=== PATIENT | female | born 1975 | race Caucasian/White ===

== ENCOUNTER 2021-12-06 10:08 | Emergency (ER) | payer MEDICAID ==
[~2021-12-06] VITALS: Ht 162.6 cm; Wt 103.5 kg
[2021-12-06 11:31] VITALS: BP 139/83
== END 2021-12-06 13:04 | disposition home or self-care (01) ==
LOC: ER 10:08
DX: F15.23 Other stimulant dependence with withdrawal (principal); E11.9 Type 2 diabetes mellitus without complications; I10 Essential (primary) hypertension; Z59.00 Homelessness unspecified; Z88.2 Allergy status to sulfonamides; Z88.5 Allergy status to narcotic agent; Z88.6 Allergy status to analgesic agent
CPT/HCPCS: 99281

== ENCOUNTER 2022-10-10 02:49 | Emergency (ER) | payer MEDICAID ==
[~2022-10-10] VITALS: Ht 162.6 cm; Wt 100.2 kg
[2022-10-10 02:59] VITALS: BP 135/90; PULSE 91; RESP 18; TEMP 98.2; O2SAT 99
--- NOTE | 2022-10-10 03:08 | NUR ---
TOMMY CONTACTED CASE # [id number]
--- NOTE | 2022-10-10 04:50 | NUR ---
ANITA HERE TO MAKE REPORT.
[2022-10-10] MEDS ORDERED: bacitracin 15gm ointment TP ONE (05:20)
[2022-10-10] MEDS ORDERED: BACI28OI9 TP (05:22)
== END 2022-10-10 05:57 | disposition home or self-care (01) ==
LOC: ER 02:50
DX: S01.312A Laceration without foreign body of left ear, initial encounter (principal); I10 Essential (primary) hypertension; E11.9 Type 2 diabetes mellitus without complications; F15.90 Other stimulant use, unspecified, uncomplicated; Z88.2 Allergy status to sulfonamides; Z88.5 Allergy status to narcotic agent; Z88.6 Allergy status to analgesic agent; Z79.2 Long term (current) use of antibiotics; Z98.890 Other specified postprocedural states; Y08.89XA Assault by other specified means, initial encounter; Y93.89 Activity, other specified; Y92.89 Other specified places as the place of occurrence of the external cause; Y99.8 Other external cause status
CPT/HCPCS: 99282

== ENCOUNTER 2023-06-05 23:49 | Emergency (ER) | payer MEDICAID ==
[~2023-06-05] VITALS: Ht 162.6 cm; Wt 90.9 kg
[~2023-06-05 23:49] MED LIST: BACI28OI9 TP
[2023-06-06 00:17] VITALS: BP 128/80; TEMP 98.8
[2023-06-06] MEDS ORDERED: fentaNYL/PF 50MCG/1 ML 2ML syringe IM ONE (01:30)
[2023-06-06 01:45] LABS: BILIRUBIN,URINE NEGATIVE (Neg); CLARITY,URINE SLIGHTLY CLOUDY (Clear); COLOR,URINE YELLOW (Yellow); GLUCOSE, URINE NEGATIVE (Neg); KETONES,URINE NEGATIVE (Neg); LEUKOCYTE ESTERASE ,URINE NEGATIVE (Neg); NITRITES, URINE NEGATIVE (Neg); OCCULT BLOOD,URINE NEGATIVE (Neg); PH,URINE 5.5 (4.8-8.0); PROTEIN,URINE NEGATIVE (Neg); UROBILINOGEN,URINE 0.2 E.U/dL (0.2-1.0)
[2023-06-06 01:48] LABS: UA COLLECTION TYPE CLN CATCH MIDSTREAM
[2023-06-06 01:54] LABS: SQUAMOUS EPITHELIAL CELL,UR MANY /LPF (FEW)
[2023-06-06 01:57] LABS: BACTERIA,URINE 1+ /HPF (Neg); MUCUS STRANDS FEW /LPF (Neg); TRANSITIONAL EPI CELLS,URINE FEW /HPF
[2023-06-06 01:59] LABS: RBC,URINE 0-2 /HPF (0-2)
[2023-06-06 02:08] LABS: URINE AMPHETAMINE SCREEN POSITIVE (Neg); URINE BARBITUATE SCREEN NEGATIVE (Neg); URINE BENZODIAZEPINES SCREEN NEGATIVE (Neg); URINE CANNABINOID SCREEN NEGATIVE (Neg); URINE COCAINE SCREEN NEGATIVE (Neg); URINE METHADONE SCREEN NEGATIVE (Neg); URINE OPIATE SCREEN NEGATIVE (Neg); URINE PHENCYCLIDINE SCREEN NEGATIVE (Neg)
[2023-06-06] MEDS: orphenadrine citrate 60mg/2ml inj. IM ONE (02:09)
[2023-06-06] MEDS: acetaminophen 325mg tablet PO ONE (02:14)
[2023-06-06] MEDS: fentaNYL/PF 50MCG/1 ML 2ML syringe IV ONE (02:14)
[2023-06-06 02:33] LABS: BASOPHILS # (AUTO) 0.1 X10'3 (0-0.2); EOSINOPHILS # (AUTO) 0.2 X10'3 (0-0.9); EOSINOPHILS % (AUTO) 2.1 % (0-6); HEMATOCRIT 38.9 % (35.0-45.0); HEMOGLOBIN 12.4 g/dl (12.0-16.0); LYMPHOCYTES # (AUTO) 2.9 X10'3 (1.1-4.8); LYMPHOCYTES % (AUTO) 25.7 % (21-51); MEAN CORPUSCULAR HEMOGLOBIN 27.3 PG (27.0-31.0); MEAN CORPUSCULAR HGB CONC 31.9 g/dL (33.0-36.5); MEAN CORPUSCULAR VOLUME 85.4 FL (78-98); MEAN PLATELET VOLUME 7.6 FL (7.4-10.4); MONOCYTES # (AUTO) 0.9 X10'3 (0-0.9); MONOCYTES % (AUTO) 7.5 % (2-12); NEUTROPHILS # (AUTO) 7.3 X10'3 (1.8-7.7); NEUTROPHILS % (AUTO) 63.7 % (42-75); PLATELET COUNT 488 X10'3 (140-440); RED BLOOD COUNT 4.55 X10'6 (4.20-5.60); RED CELL DISTRIBUTION WIDTH 18.5 % (11.5-14.5); WHITE BLOOD COUNT 11.4 X10'3 (4.5-11.0)
[2023-06-06 02:40] LABS: ALBUMIN 2.9 G/DL (3.4-5.0); ANION GAP 7 (8-16); BLOOD UREA NITROGEN 14 MG/DL (7-18); BUN/CREATININE RATIO 15.2 (10.0-20.0); CALCIUM 8.6 MG/DL (8.5-10.1); CHLORIDE 108 MMOL/L (99-107); CREATININE 0.92 MG/DL (0.40-0.90); GLUCOSE 96 MG/DL (70-104); POTASSIUM 3.8 MMOL/L (3.5-5.1); SODIUM 142 MMOL/L (135-145); TOTAL CARBON DIOXIDE 26.8 MMOL/L (24-32); eCRCL 67 ML/MIN; eGFR 66 ML/MIN
[2023-06-06] MEDS ORDERED: CYCL-1 PO (03:52)
[2023-06-06 04:26] VITALS: PULSE 82; RESP 16; O2SAT 98
== END 2023-06-06 04:27 | disposition home or self-care (01) ==
LOC: ER 23:49
DX: M54.9 Dorsalgia, unspecified (principal); F15.90 Other stimulant use, unspecified, uncomplicated; R51.9 Headache, unspecified; I10 Essential (primary) hypertension; E11.9 Type 2 diabetes mellitus without complications; G89.29 Other chronic pain; Z59.00 Homelessness unspecified; Z88.2 Allergy status to sulfonamides; Z88.5 Allergy status to narcotic agent; Z79.899 Other long term (current) drug therapy; Z72.89 Other problems related to lifestyle
CPT/HCPCS: 36415; 74176; 80048; 80305; 81001; 85025; 96372; 96374; 99285; J2360; J3010

== ENCOUNTER 2023-11-06 22:10 | Emergency (ER) | payer MEDICAID ==
[~2023-11-06] VITALS: Ht 162.6 cm; Wt 102.7 kg
[~2023-11-06 22:10] MED LIST changes: +CYCL-1 PO
[2023-11-06 22:36] VITALS: PULSE 110
[2023-11-06] MEDS ORDERED: ROPI2TAB29 PO (22:49)
[2023-11-06] MEDS ORDERED: QUET50TA PO (22:49)
[2023-11-06] MEDS ORDERED: NALT50TA5 PO (22:49)
[2023-11-06] MEDS ORDERED: HYDR-3686 PO (22:49)
[2023-11-06 22:56] VITALS: BP 100/87; RESP 15; TEMP 98; O2SAT 100
== END 2023-11-06 22:58 | disposition home or self-care (01) ==
LOC: ER 22:11
DX: F41.9 Anxiety disorder, unspecified (principal); I10 Essential (primary) hypertension; E11.9 Type 2 diabetes mellitus without complications; G89.29 Other chronic pain; Z98.891 History of uterine scar from previous surgery; Z98.51 Tubal ligation status; Z59.00 Homelessness unspecified; Z88.2 Allergy status to sulfonamides; Z88.5 Allergy status to narcotic agent; Z88.8 Allergy status to other drugs, medicaments and biological substances; Z79.899 Other long term (current) drug therapy
CPT/HCPCS: 99283

== ENCOUNTER 2024-04-20 13:09 | Emergency (ER) | payer MEDICAID ==
[~2024-04-20] VITALS: Ht 162.6 cm; Wt 96.4 kg
[~2024-04-20 13:09] MED LIST changes: +NALT50TA5 PO; +QUET50TA PO; +ROPI2TAB29 PO
[2024-04-20] MEDS ORDERED: NICO-731 TOP (14:10)
[2024-04-20 14:17] VITALS: BP 146/86; PULSE 96; RESP 16; TEMP 97.9; O2SAT 98
== END 2024-04-20 14:22 | disposition home or self-care (01) ==
LOC: ER 13:09
DX: Z00.00 Encounter for general adult medical examination without abnormal findings (principal); E11.9 Type 2 diabetes mellitus without complications; I10 Essential (primary) hypertension; F17.210 Nicotine dependence, cigarettes, uncomplicated; F15.90 Other stimulant use, unspecified, uncomplicated; Z88.2 Allergy status to sulfonamides; Z88.5 Allergy status to narcotic agent; Z98.51 Tubal ligation status
CPT/HCPCS: 99282

== ENCOUNTER 2025-01-07 09:01 | Emergency (ER) | payer MEDICAID ==
[~2025-01-07] VITALS: Ht 162.6 cm; Wt 96.9 kg
[~2025-01-07 09:01] MED LIST changes: +NICO-731 TOP
[2025-01-07 09:13] VITALS: BP 129/75; PULSE 78; RESP 16; TEMP 98.4; O2SAT 99
--- NOTE | 2025-01-07 09:23 | Physician Documentation ---
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 No acute concerns Tetanus within 5 years?: Yes Medication Reconciliation Allergies: Coded Allergies: Sulfa (Sulfonamide Antibiotics) (Verified Allergy, Severe, Hives, 01/07/25) morphine (Verified Allergy, Unknown, SWELLING, HIVES, 01/07/25) ketorolac (Verified Adverse Reaction, Intermediate, crawl out of my skin, 01/07/25) Scheduled Bacitracin/Pramoxine/Aloe Vera (Bacitracin Plus Ointment), 28 GM TP BID Cyclobenzaprine* (Cyclobenzaprine*), 1 TAB PO HS Naltrexone Hcl (Naltrexone Hcl), 0.5 TAB PO DAILY Nicotine (Nicotine Patch), 1 PATCH TOP DAILY Quetiapine Fumarate (Seroquel), 1 TAB PO HS Ropinirole Hcl (Ropinirole Hcl), 1 TAB PO DAILY Past Medical History Past Medical History: Hypertension, Diabetes, Chronic Pain Past Surgical History: , tubal ligation Alcohol Use: Rarely Drug Use: methamphetamine Lives with: Spouse, Family Lives In: Homeless Review of Systems All Other Systems at this time: Reviewed and Negative Constitutional: Reports: see HPI Physical Exam Vital Signs: RN Vital Signs have been reviewed: Yes, Temperature: 98.4, Source: Oral, Heart Rate: 78, Respiratory Rate: 16, BP: 129/75, Pulse Oximetry: 99, Weight: 96.900 Oxygen Flow Rate: 0 Physical Exam General: Alert, no apparent distress. HEENT: PERRL, EOMI, no injection, moist mucous membranes. Neck: Full range of motion. Respiratory: Lungs clear, no respiratory distress. Chest: No accessory muscle use. Cardiovascular: Regular rate and rhythm, no murmurs. Extremities: Normal range of motion, no deformity. Neurologic: Oriented x4. Psychiatric: Normal mood and affect. Skin: Normal color, warm and dry. No edema, no ecchymosis. Progress Results/Orders Results/Orders Vital Signs 01/07/25 09:13 Temp 98.4 Pulse 78 Resp 16 B/P (MAP) 129/75 Pulse Ox 99 O2 Flow Rate 0 Medical Decision Making Additional information obtaine: N/A Findings Medical clearance provided to maintain sobriety within an outpatient program Differential Dx:Considerations: Include: Medically stable Departure Time of Disposition: 09:22 Disposition: 01 HOME / SELF CARE / HOMELESS Impression: Primary Impression: General medical exam Condition: Stable Discharge Instructions: Medical Screening Exam Additional Instructions: Patient is medically cleared for rehab Referrals: NO PRIMARY CARE PROVIDER (PCP) Education Educated: Patient Educated regarding: diagnosis, treatment, need for follow up Signature Scribe Signature: No scribe Attestation: The note accurately reflects work and decisions made by me.Kayla LANDAVERDE 01/07/25 09:22 KAYLA AMARO NP Jan 07, 2025 09:23
== END 2025-01-07 09:38 | disposition home or self-care (01) ==
LOC: ER 09:02
DX: Z00.00 Encounter for general adult medical examination without abnormal findings (principal); I10 Essential (primary) hypertension; G89.29 Other chronic pain; F15.90 Other stimulant use, unspecified, uncomplicated; E11.9 Type 2 diabetes mellitus without complications; Z88.2 Allergy status to sulfonamides; Z88.5 Allergy status to narcotic agent; Z98.51 Tubal ligation status; Z79.899 Other long term (current) drug therapy; Z59.00 Homelessness unspecified; Z98.890 Other specified postprocedural states
CPT/HCPCS: 99282

== ENCOUNTER 2025-01-24 15:56 | Emergency (ER) | payer MEDICAID ==
[~2025-01-24] VITALS: Ht 162.6 cm; Wt 99.1 kg
[2025-01-24 15:58] VITALS: BP 157/89; PULSE 72; RESP 16; TEMP 97.7; O2SAT 97
[2025-01-24 16:44] LABS: MEAN PLATELET VOLUME 7.1 FL (7.4-10.4); RED CELL DISTRIBUTION WIDTH 14.6 % (11.5-14.5)
[2025-01-24 17:06] LABS: CREATININE 0.66 MG/DL (0.40-0.90); TOTAL CARBON DIOXIDE 29.7 MMOL/L (24-32); eCRCL 91 ML/MIN; eGFR > 90 ML/MIN
--- NOTE | 2025-01-24 19:21 | Physician Documentation ---
History of Present Illness Chief Complaint: Abdominal Pain w/vomiting Stated Complaint: STOMACH PAIN/NAUSEA Time Seen by MD: 18:38 [facility] This is a 49-year-old female who presents with one day of nausea, vomiting, diarrhea, and central abdominal pain. Patient reports no subjective fever. Patient reports no other acute symptoms or concerns. Medication Reconciliation Allergies: Coded Allergies: Sulfa (Sulfonamide Antibiotics) (Verified Allergy, Severe, Hives, 01/07/25) morphine (Verified Allergy, Unknown, SWELLING, HIVES, 01/07/25) ketorolac (Verified Adverse Reaction, Intermediate, crawl out of my skin, 01/07/25) Scheduled Bacitracin/Pramoxine/Aloe Vera (Bacitracin Plus Ointment), 28 GM TP BID Cyclobenzaprine* (Cyclobenzaprine*), 1 TAB PO HS Naltrexone Hcl (Naltrexone Hcl), 0.5 TAB PO DAILY Nicotine (Nicotine Patch), 1 PATCH TOP DAILY Quetiapine Fumarate (Seroquel), 1 TAB PO HS Ropinirole Hcl (Ropinirole Hcl), 1 TAB PO DAILY Past Medical History Past Medical History: Hypertension, Diabetes, Chronic Pain Past Surgical History: , tubal ligation Alcohol Use: Rarely Drug Use: methamphetamine Lives with: Spouse, Family Lives In: Homeless Review of Systems ROS As stated above in the HPI, otherwise all systems are reviewed and negative. Physical Exam Vital Signs: Temperature: 97.7, Source: Oral, Heart Rate: 72, Respiratory Rate: 16, BP: 157/89, Pulse Oximetry: 97, Weight: 99.100 Oxygen Flow Rate: 0 Physical Exam VITALS: Reviewed and as above. GENERAL: Alert, nontoxic appearing, no apparent distress. RESPIRATORY: No increased work of breathing, no respiratory distress, speaking in full clear sentences clear lung sounds in all oneil CV: Regular rate and rhythm no murmur BACK: No CVA tenderness GI: Mild periumbilical and right lower quadrant tenderness otherwise soft, nontender, no rebound, no guarding SKIN: No abdominal ecchymosis Progress Progress Note 2018: Was informed by nursing staff after the patient was offered a nonnarcotic pain medication for abdominal pain patient is reporting her symptoms have completely resolved and she would like to be discharged, on reassessment patient reports symptoms have completely resolved and is requesting to be discharged. Results/Orders Results/Orders Vital Signs 01/24/25 15:58 Temp 97.7 Pulse 72 Resp 16 B/P (MAP) 157/89 Pulse Ox 97 O2 Flow Rate 0 Laboratory Tests Test 01/24/25 16:27 White Blood Count 8.0 Red Blood Count 4.46 Hemoglobin 13.7 Hematocrit 41.1 Mean Corpuscular Volume 92.1 Mean Corpuscular Hemoglobin 30.7 Mean Corpuscular Hemoglobin Concent 33.3 Red Cell Distribution Width 14.6 H Platelet Count 502 H Mean Platelet Volume 7.1 L Neutrophils (%) (Auto) 52.1 Lymphocytes (%) (Auto) 32.3 Monocytes (%) (Auto) 10.6 Eosinophils (%) (Auto) 3.8 Basophils (%) (Auto) 1.2 H Neutrophils # (Auto) 4.2 Lymphocytes # (Auto) 2.6 Monocytes # (Auto) 0.8 Eosinophils # (Auto) 0.3 Basophils # (Auto) 0.1 CBC Comment Sodium Level 142 Potassium Level 3.4 L Chloride Level 104 Carbon Dioxide Level 29.7 Anion Gap 8 Blood Urea Nitrogen 12 Creatinine 0.66 Estimated GFR/1.73 m2 > 90 BUN/Creatinine Ratio 18.2 Glucose Level 138 H Calcium Level 8.3 L Total Bilirubin 0.2 Aspartate Amino Transf (AST/SGOT) 16 Alanine Aminotransferase (ALT/SGPT) 11 L Alkaline Phosphatase 62 Total Protein 7.3 Albumin 3.2 L Globulin 4.1 Albumin/Globulin Ratio 0.8 L Lipase 40 Chemistry Comments Medical Decision Making Additional information obtaine: N/A Findings This 49-year-old female presented to the emergency department with one day of nausea, vomiting, and diarrhea with the accompanying central abdominal pain, physical exam demonstrated some mild tenderness to periumbilical area and the right lower quadrant however there was no rebound tenderness guarding which was reassuring patient was offered nonnarcotic pain medication and imaging was ordered however patient reported her symptoms had improved and she no longer wished to have further workup, patient's labs were reassuring without significant abnormality patient was hemodynamically stable and otherwise well- appearing with remainder of physical exam benign therefore appropriate for outpatient follow up. Patient provided careful return to care precautions, follow up instructions, and home care instructions which she verbalized understanding of. Differential Dx:Considerations: AAA, Aortic dissection, Appendicitis, Bowel obstruction, Cholangitis, Cholelithasis, Constipation, Diverticular disease, Esophageal rupture, Esophagitis, Gastritis/PUD, Gastroenteritis, GI hemorrhage, Hernia, Inflammatory BD, Ischemic bowel, Urinary obstruction, Urinary tract infection, Urolithiasis, Other (Drug Seeking ) Departure Time of Disposition: 20:24 Disposition: 01 HOME / SELF CARE / HOMELESS Impression: Primary Impression: Abdominal pain Qualified Codes: R10.85 - Abdominal pain of multiple sites Additional Impression: Nausea vomiting and diarrhea Condition: Improved Discharge Instructions: Viral Gastroenteritis, Adult, [id number] Additional Instructions: It is reassuring your symptoms have resolved, given your report of vomiting and diarrhea this is a likelihood this was caused by enteritis which included some home care instructions for, please stay well hydrated and begin eating as tolerated. Please follow up with your primary care provider in the next few days. Please return to the emergency department for any new or worsening concerning symptoms. Referrals: NO PRIMARY CARE PROVIDER (PCP) Education Educated: Patient, Family Educated regarding: diagnosis, treatment, prognosis, need for follow up Signature Scribe Signature: No scribe Attestation: The note accurately reflects work and decisions made by me.AKHIL Fung 01/25/25 01:00 MERYL SIBLEY Jan 24, 2025 19:21
[2025-01-24] MEDS ORDERED: acetaminophen 1,000mg/100ml IV 100 ML IV ONE (19:25)
== END 2025-01-24 20:38 | disposition home or self-care (01) ==
LOC: ER 15:56
DX: R10.31 Right lower quadrant pain (principal); R19.7 Diarrhea, unspecified; I10 Essential (primary) hypertension; E11.9 Type 2 diabetes mellitus without complications; F15.90 Other stimulant use, unspecified, uncomplicated; Z88.2 Allergy status to sulfonamides; Z88.5 Allergy status to narcotic agent; Z98.51 Tubal ligation status
CPT/HCPCS: 36415; 80053; 83690; 85025; 99283

== ENCOUNTER 2025-02-07 17:52 | Emergency (ER) | payer MEDICAID ==
[~2025-02-07] VITALS: Ht 162.6 cm; Wt 100.8 kg
--- NOTE | 2025-02-07 19:35 | Physician Documentation ---
History of Present Illness ~ Chief Complaint: STD Stated Complaint: STD Time Seen by MD: 18:09 Primary Medical Doctor: [facility] HPI This is a 49-year-old female who presents requesting treatment for syphilis after her partner tested positive for syphilis, patient reports no symptoms. Medication Reconciliation Allergies: Coded Allergies: Sulfa (Sulfonamide Antibiotics) (Verified Allergy, Severe, Hives, 02/07/25) morphine (Verified Allergy, Unknown, SWELLING, HIVES, 02/07/25) ketorolac (Verified Adverse Reaction, Intermediate, crawl out of my skin, 02/07/25) Scheduled Bacitracin/Pramoxine/Aloe Vera (Bacitracin Plus Ointment), 28 GM TP BID Cyclobenzaprine* (Cyclobenzaprine*), 1 TAB PO HS Doxycycline Monohydrate (Doxycycline Monohydrate), 1 CAP PO Q12H Naltrexone Hcl (Naltrexone Hcl), 0.5 TAB PO DAILY Nicotine (Nicotine Patch), 1 PATCH TOP DAILY Quetiapine Fumarate (Seroquel), 1 TAB PO HS Ropinirole Hcl (Ropinirole Hcl), 1 TAB PO DAILY Past Medical History Past Medical History: Hypertension, Diabetes, Chronic Pain Past Surgical History: , tubal ligation Alcohol Use: Rarely Drug Use: methamphetamine Lives with: Spouse, Family Lives In: Homeless Review of Systems ROS As stated above in the HPI, otherwise all systems are reviewed and negative. Physical Exam Vital Signs: Temperature: 99.0, Source: Temporal, Heart Rate: 89, Respiratory Rate: 12, BP: 130/80, Pulse Oximetry: 96, Weight: 100.800 Oxygen Flow Rate: 0 Physical Exam VITALS: Reviewed and as above. GENERAL: Alert, nontoxic appearing, no apparent distress. HEENT: RESPIRATORY: No increased work of breathing, no respiratory distress, speaking in full clear sentences CHEST: CV: BACK: GI: MUSCULOSKELETAL: SKIN: NEURO: PSYCH: Progress Results/Orders Results/Orders Vital Signs 02/07/25 02/07/25 17:59 19:45 Temp 99.0 98.6 Pulse 89 88 Resp 12 18 B/P (MAP) 130/80 128/78 Pulse Ox 96 99 O2 Flow Rate 0 Medical Decision Making Additional information obtaine: N/A Findings 49-year-old female with no other symptoms presents requesting treatment for syphilis as her partner has tested positive for syphilis, given current treatment guidelines for partner therapy patient will be prescribed a course of oral antibiotics for syphilis as penicillin is on shortage. Patient history of tubal ligation therefore no test indicated. Patient is otherwise well and appropriate for outpatient follow up, patient has been directed to follow up with the primary care provider for further management and test of care for syphilis. Urinary Diff Dx:Considerations: Include: Intrauterine , Ovarian torsion, PID, Pyelonephritis, Urolithiasis, UTI Genital Diff Dx:Considerations: Include: , UTI, Vaginitis(osis)- Atrophic, Vaginitis, Vaginitis(osis)-Bacterial, Vaginitis(osis)-Candidal, Vaginitis(osis)-Contact, Vaginitis(osis)-Herpes, Vaginitis(osis)-Trich. Departure Time of Disposition: 19:31 Disposition: HOME / SELF CARE / HOMELESS Impression: Primary Impression: Exposure to syphilis Additional Impression: Sexually transmitted infection in female Condition: Improved Additional Instructions: Take antibiotics as prescribed, do not have unprotected sex until you have a test of cure for both you and your partner. Please follow up with your primary care provider in the next few days. Please return to the emergency department for any new or worsening concerning symptoms. Referrals: NO PRIMARY CARE PROVIDER (PCP) Prescriptions Doxycycline Monohydrate (Doxycycline Monohydrate) 100 Mg Capsule 1 CAP PO Q12H for 14 Days, #28 CAP Prov: MERYL SIBLEY 02/07/25 Education Educated: Patient Educated regarding: diagnosis, treatment, prognosis, need for follow up Signature Scribe Signature: No scribe Attestation: The note accurately reflects work and decisions made by me.AKHIL Fung 02/08/25 12:38 MERYL SIBLEY Feb 07, 2025 19:35
[2025-02-07] MEDS ORDERED: DOXY100C43 PO (19:37)
[2025-02-07 19:45] VITALS: BP 128/78; PULSE 88; RESP 18; TEMP 98.6; O2SAT 99
== END 2025-02-07 19:47 | disposition home or self-care (01) ==
LOC: ER 17:52
DX: A64 Unspecified sexually transmitted disease (principal); Z20.2 Contact with and (suspected) exposure to infections with a predominantly sexual mode of transmission; E11.9 Type 2 diabetes mellitus without complications; G89.29 Other chronic pain; I10 Essential (primary) hypertension; Z88.2 Allergy status to sulfonamides; Z88.5 Allergy status to narcotic agent; Z98.51 Tubal ligation status; Z79.899 Other long term (current) drug therapy; Z88.8 Allergy status to other drugs, medicaments and biological substances; Z98.890 Other specified postprocedural states; Z59.00 Homelessness unspecified
CPT/HCPCS: 99283

== ENCOUNTER 2025-02-10 14:16 | Emergency (ER) | payer MEDICAID ==
[~2025-02-10] VITALS: Ht 160 cm; Wt 100.8 kg
[~2025-02-10 14:16] MED LIST changes: +DOXY100C43 PO
[2025-02-10 14:20] VITALS: TEMP 97.6
[2025-02-10 14:53] LABS: MEAN PLATELET VOLUME 7.6 FL (7.4-10.4); RED CELL DISTRIBUTION WIDTH 15.1 % (11.5-14.5)
[2025-02-10 15:20] LABS: CREATININE 0.67 MG/DL (0.40-0.90); TOTAL CARBON DIOXIDE 29.0 MMOL/L (24-32); eCRCL 86 ML/MIN; eGFR > 90 ML/MIN
[2025-02-10 16:20] LABS: URINE HCG NEGATIVE (NEG)
[2025-02-10 16:27] LABS: UA COLLECTION TYPE CLN CATCH MIDSTREAM
[2025-02-10 16:30] LABS: SQUAMOUS EPITHELIAL CELL,UR MANY /LPF (FEW)
[2025-02-10 16:31] LABS: HYALINE CASTS 0-3 /LPF (NEGATIVE); MUCUS STRANDS MODERATE /LPF (Neg)
--- NOTE | 2025-02-10 17:38 | Physician Documentation ---
History of Present Illness Chief Complaint: Abdominal Pain Stated Complaint: ABD PAIN Time Seen by MD: 16:35 Primary Medical Doctor: NIKUNJ WEST Mode of Arrival: EMS HPI This is a 49-year-old female who presents with right upper quadrant and epigastric pain described as burning for the past 2-3 days, patient reports that pain is worse after eating. Patient reports two episodes of vomiting today otherwise no vomiting or diarrhea. Patient reports normal bowel movement today. Patient reports that she has experienced episodes similar to this several times over the past month however this is worse and more persistent than previous episodes. Patient reports subjective fever at home earlier today. Patient reports no other acute symptoms or concerns. Medication Reconciliation Allergies: Coded Allergies: Sulfa (Sulfonamide Antibiotics) (Verified Allergy, Severe, Hives, 02/10/25) morphine (Verified Allergy, Unknown, SWELLING, HIVES, 02/10/25) ketorolac (Verified Adverse Reaction, Intermediate, crawl out of my skin, 02/10/25) Scheduled Bacitracin/Pramoxine/Aloe Vera (Bacitracin Plus Ointment), 28 GM TP BID Cyclobenzaprine* (Cyclobenzaprine*), 1 TAB PO HS Doxycycline Monohydrate (Doxycycline Monohydrate), 1 CAP PO Q12H Naloxone HCl (Narcan), 1 SPRAYS BOTHNARES ONCE Naltrexone Hcl (Naltrexone Hcl), 0.5 TAB PO DAILY Nicotine (Nicotine Patch), 1 PATCH TOP DAILY Quetiapine Fumarate (Seroquel), 1 TAB PO HS Ropinirole Hcl (Ropinirole Hcl), 1 TAB PO DAILY Scheduled PRN Oxycodone Hcl IR* (Oxycodone IR*), 1 TAB PO QID PRN PRN for pain Past Medical History Past Medical History: Hypertension, Diabetes, Chronic Pain Past Surgical History: , tubal ligation Alcohol Use: Rarely Drug Use: methamphetamine Lives with: Spouse, Family Lives In: Homeless Review of Systems ROS As stated above in the HPI, otherwise all systems are reviewed and negative. Physical Exam Vital Signs: Temperature: 97.6, Source: Temporal, Heart Rate: 72, Respiratory Rate: 16, BP: 131/94, Pulse Oximetry: 97, Weight: 100.800 Oxygen Flow Rate: 0 Physical Exam VITALS: Reviewed and as above. GENERAL: Alert, nontoxic appearing, no apparent distress. HEENT: No scleral icterus RESPIRATORY: No increased work of breathing, no respiratory distress, speaking in full clear sentences, clear lung sounds in all oneil CV: Regular rate and rhythm no murmur BACK: No CVA tenderness GI: Right upper quadrant and epigastric tender to palpation, mild tenderness to right lower quadrant, left quadrants nontender to palpation, no rebound, no guarding, bowel sounds present MUSCULOSKELETAL: SKIN: Warm and dry, no jaundice, no abdominal ecchymosis or erythema Progress Results/Orders Results/Orders Orders - MERYL SIBLEY Ultrasound Of Abdomen (02/10/25 17:25) Vital Signs 02/10/25 02/10/25 02/10/25 02/10/25 14:20 16:11 16:11 17:17 Temp 97.6 Pulse 60 65 72 Resp 16 16 16 B/P (MAP) 177/94 137/81 (99) 131/94 (106) Pulse Ox 98 99 97 O2 Flow Rate 0 0 Laboratory Tests Test 02/10/25 14:33 02/10/25 16:01 White Blood Count 7.4 Red Blood Count 4.72 Hemoglobin 14.5 Hematocrit 43.1 Mean Corpuscular Volume 91.4 Mean Corpuscular Hemoglobin 30.7 Mean Corpuscular Hemoglobin Concent 33.6 Red Cell Distribution Width 15.1 H Platelet Count 490 H Mean Platelet Volume 7.6 Neutrophils (%) (Auto) 55.7 Lymphocytes (%) (Auto) 31.5 Monocytes (%) (Auto) 8.8 Eosinophils (%) (Auto) 3.7 Basophils (%) (Auto) 0.3 Neutrophils # (Auto) 4.1 Lymphocytes # (Auto) 2.3 Monocytes # (Auto) 0.7 Eosinophils # (Auto) 0.3 Basophils # (Auto) 0.0 CBC Comment Sodium Level 139 Potassium Level 3.5 Chloride Level 103 Carbon Dioxide Level 29.0 Anion Gap 7 L Blood Urea Nitrogen 10 Creatinine 0.67 Estimated GFR/1.73 m2 > 90 BUN/Creatinine Ratio 14.9 Glucose Level 121 H Calcium Level 8.7 Total Bilirubin 2.4 H Aspartate Amino Transf (AST/SGOT) 197 H Alanine Aminotransferase (ALT/SGPT) 250 H Alkaline Phosphatase 125 H Total Protein 8.1 Albumin 3.6 Globulin 4.5 H Albumin/Globulin Ratio 0.8 L Lipase 46 Chemistry Comments Urine Specimen Description Cln catch midstream Urine Color Yellow Urine Clarity Slightly cloudy Urine pH Urine Specific [place] Urine Protein Urine Glucose (UA) Urine Ketones Urine Occult Blood Urine Nitrite Urine Bilirubin Urine Urobilinogen Urine Leukocyte Esterase Urine RBC 0-2 Urine WBC 0-4 Urine Squamous Epithelial Cells Many Urine Bacteria 2+ Urine Hyaline Casts 0-3 Urine Mucus Moderate Urine Culture Indicated Not ind Volume Urine Centrifuged 10 ml Urine HCG, Qualitative Negative Urine Comment See note EKG/XRAY/CT/US/VASC/MRI Ultrasound : Impression Exam: ULTRASOUND OF ABDOMEN EXAM: US ULTRASOUND OF ABDOMEN HISTORY: Right upper quadrant and epigastric pain COMPARISON: CT CT ABDOMEN PELVIS on DOS: 06/06/23 TECHNIQUE: Real-time grayscale and color flow images of the abdomen were obtained. FINDINGS: LIVER: Liver measures 19.3 cm craniocaudal. Liver parenchyma is diffusely echogenic. No focal lesion is identified. No intrahepatic ductal dilatation. Normal directional flow is seen in the portal vein. GALLBLADDER: Multiple gallstones. No significant gallbladder distention or wall thickening. COMMON BILE DUCT: 0.35 cm in caliber. PANCREAS: Visualized portions are unremarkable. KIDNEYS: The right kidney measures 10 cm in length. No evidence of hydronephrosis. IMPRESSION: Hepatomegaly with fatty liver Extensive cholelithiasis Electronically Signed by:HARIS PARRISH MD Date & Time: 02/10/251847 Dictated by: HARIS PARRISH MD Dictation date and time: 02/10/251847 MRI : Impression Exam: MRCP CLINICAL HISTORY: Right upper quadrant pain with elevated bilirubin and LFTs TECHNIQUE: MRCP of the abdomen was performed without gadolinium. 3D reconstructed images were created under concurrent radiologist supervision and archived on the PACS system. WID: COMPARISON: US ULTRASOUND OF ABDOMEN on DOS: 02/10/25, CT CT ABDOMEN PELVIS on DOS: 06/06/23 FINDINGS: The liver is enlarged measuring 18.5 cm. Numerous gallstones within the gallbladder without thickening. No evidence of choledocholithiasis. Common bile duct is within normal limits. The kidneys, spleen, and adrenal glands are unremarkable. The imaged bowel is within normal limits. IMPRESSION: Cholelithiasis No evidence of choledocholithiasis Hepatomegaly Electronically Signed by:HARIS PARRISH MD Date & Time: 02/10/251913 Dictated by: HARIS PARRISH MD Dictation date and time: 02/10/251913 Medical Decision Making Additional information obtaine: old records Findings This 49-year-old female presented with right upper quadrant and epigastric pain described as burning and worse after meals. Physical exam was significant for right upper quadrant tenderness palpation, lab significant for elevated LFTs including bilirubin though labs reassuring with no leukocytosis or elevated lipase. Vital signs reassuring with no fever, not tachycardic, not hypotensive. Given right upper quadrant pain and elevated LFTs on initial lab work as compared with recent visit in the context of right upper quadrant pain an ultrasound and MRCP were ordered, ultrasound demonstrated many stones and gallbladder without gallbladder wall thickening or CBD dilation which was confirmed with MRCP, findings consistent with cholelithiasis without evidence of choledocholithiasis, cholecystitis, or cholangitis. Pancreatitis considered though imaging findings and lack of elevated lipase unlikely. Elevated liver enzymes likely due to hepatitis of unknown origin, given history of IV drug use this could represent viral hepatitis though patient recently exposed to syphilis and in consultation with Infectious Disease physician this could represent elevation of LFTs due to syphilis. As patient is hemodynamically stable she is appropriate for outpatient follow up on both cholelithiasis and new onset he patitis. Patient provided careful return to care precautions and home care instructions which she verbalized understanding of. Patient verbalized understanding of the need for prompt follow up for both cholelithiasis and hepatitis, patient does have primary care appointment on the and advised she may be able to be seen sooner by primary is reassuring. I have discussed with the patient the risks of addiction and overdose associated with use of opioids, including the increased risk of addiction to an opioid for an individual who is suffering from both mental and substance abuse disorders. I have discussed with the patient the danger of taking an opioid with a benzodiazepine, alcohol, or another central nervous system depressant. Differential Dx:Considerations: Angina/DC, Aortic dissection, Appendicitis, Bowel obstruction, Cholangitis, Cholelithasis, Constipation, Diverticular disease, Esophageal rupture, Esophagitis, Gastritis/PUD, Gastroenteritis, GI hemorrhage, Hernia, Hepatitis, Inflammatory BD, Ischemic bowel, Ovarian cyst/torsion, Pancreatitis, PID, Urinary obstruction, Urinary tract infection, Urolithiasis Departure Time of Disposition: 20:53 Disposition: 01 HOME / SELF CARE / HOMELESS Impression: Primary Impression: Cholelithiasis without obstruction Qualified Codes: K80.20 - Calculus of gallbladder without cholecystitis without obstruction Additional Impression: Hepatitis Condition: Improved Discharge Instructions: Cholelithiasis, [id number] Additional Instructions: Please follow up promptly with her primary care provider for further evaluation and management of your hepatitis and gallstones. Please use the prescribed oxycodone as needed for pain, avoid ibuprofen and Tylenol at this time due to concerns that this could cause further problems with your liver. Please follow up with your primary care provider in the next few days. Please return to the emergency department for any new or worsening concerning symptoms including but not limited to if you develop a fever, worsening abdominal pain, or are unable t o keep food or drink down. You have been prescribed an opioid medication, there are risks of addiction and overdose associated with the use of opioids. The risk of addiction to an opioid for increases for those suffering both from mental health and substance use disorders. The use of an opioid while taking other central nervous system depressants including but not limited to benzodiazepines or alcohol, or other opioids increases the risk of serious side effects that can include overdose or respiratory depression that can lead to serious injury or . Referrals: NO PRIMARY CARE PROVIDER (PCP) Prescriptions Oxycodone Hcl IR* (Oxycodone IR*) 5 Mg Tablet 1 TAB PO QID PRN PRN for pain for 3 Days, #12 TAB Prov: MERYL SIBLEY 02/10/25 Naloxone HCl (Narcan) 4 Mg/Actuation Alva 1 SPRAYS BOTHNARES ONCE for 1 Day, #1 EA 0 Refills Prov: MERYL SIBLEY 02/10/25 Education Educated: Patient Educated regarding: diagnosis, treatment, prognosis, need for follow up Signature Scribe Signature: No scribe Attestation: The note accurately reflects work and decisions made by me.AKHIL Fung 02/11/25 14:01 MERYL SIBLEY Feb 10, 2025 17:38
--- NOTE | 2025-02-10 18:49 | RADIOLOGY REPORT ---
EXAM: US ULTRASOUND OF ABDOMEN HISTORY: Right upper quadrant and epigastric pain COMPARISON: CT CT ABDOMEN PELVIS on DOS: 06/06/23 TECHNIQUE: Real-time grayscale and color flow images of the abdomen were obtained. FINDINGS: LIVER: Liver measures 19.3 cm craniocaudal. Liver parenchyma is diffusely echogenic. No focal lesion is identified. No intrahepatic ductal dilatation. Normal directional flow is seen in the portal vein. GALLBLADDER: Multiple gallstones. No significant gallbladder distention or wall thickening. COMMON BILE DUCT: 0.35 cm in caliber. PANCREAS: Visualized portions are unremarkable. KIDNEYS: The right kidney measures 10 cm in length. No evidence of hydronephrosis. IMPRESSION: Hepatomegaly with fatty liver Extensive cholelithiasis
--- NOTE | 2025-02-10 19:14 | RADIOLOGY REPORT ---
CLINICAL HISTORY: Right upper quadrant pain with elevated bilirubin and LFTs TECHNIQUE: MRCP of the abdomen was performed without gadolinium. 3D reconstructed images were created under concurrent radiologist supervision and archived on the PACS system. WID: COMPARISON: US ULTRASOUND OF ABDOMEN on DOS: 02/10/25, CT CT ABDOMEN PELVIS on DOS: 06/06/23 FINDINGS: The liver is enlarged measuring 18.5 cm. Numerous gallstones within the gallbladder without thickening. No evidence of choledocholithiasis. Common bile duct is within normal limits. The kidneys, spleen, and adrenal glands are unremarkable. The imaged bowel is within normal limits. IMPRESSION: Cholelithiasis No evidence of choledocholithiasis Hepatomegaly
[2025-02-10] MEDS ORDERED: NALO4SPR BOTHNARES (20:51)
[2025-02-10] MEDS ORDERED: OXYC-658 PO (20:51)
[2025-02-10 21:16] VITALS: BP 120/76; PULSE 75; O2SAT 96
[2025-02-10 22:00] VITALS: RESP 16
[2025-02-10] MEDS: oxyCODONE IR 5mg (immed. release) tablet PO ONE (22:00)
== END 2025-02-10 22:22 | disposition home or self-care (01) ==
LOC: ER 14:16
DX: K80.20 Calculus of gallbladder without cholecystitis without obstruction (principal); K75.9 Inflammatory liver disease, unspecified; F15.90 Other stimulant use, unspecified, uncomplicated; I10 Essential (primary) hypertension; G89.29 Other chronic pain; E11.9 Type 2 diabetes mellitus without complications; Z88.2 Allergy status to sulfonamides; Z88.5 Allergy status to narcotic agent; Z98.51 Tubal ligation status; Z88.8 Allergy status to other drugs, medicaments and biological substances; Z79.899 Other long term (current) drug therapy; Z98.890 Other specified postprocedural states; Z59.00 Homelessness unspecified
CPT/HCPCS: 36415; 74181; 76700; 80053; 81001; 81025; 83690; 85025; 99285